=== PATIENT | female | born 2000 | race Caucasian/White ===

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

== ENCOUNTER 2021-08-03 13:08 | Emergency (ER) | payer OTHER, SELFPAY ==
[2021-08-03 13:16] VITALS: BP 115/72; PULSE 73; RESP 16; TEMP 36.5; O2SAT 100
--- NOTE | 2021-08-03 14:38 | ED.SKABFB ---
HPI - Skin/Abscess/Foreign Bdy General Chief complaint: Skin/Abscess/Foreign Body Stated complaint: Rash Time Seen by Provider: 08/03/21 14:32 Source: patient and RN notes reviewed Mode of arrival: ambulatory Limitations: no limitations History of Present Illness HPI narrative: Patient presents today complaining of left arm rash x11 days. Reports the rash itches and denies pain. She has been applying the fungal cream, aloe, peroxide and rubbing alcohol without much relief. She denies any new plants or animal contacts, new products in her home. No one else in her home has a similar rash. MD complaint: rash Related Data Home Medications Medication Instructions Recorded Confirmed No Home Medications 08/03/21 08/03/21 Allergies Allergy/AdvReac Type Severity Reaction Status Date / Time No Known Allergies Allergy Verified 08/03/21 13:10 Review of Systems Review of Systems: CONSTITUTIONAL: Denies body aches, fever, chills, or sweats. EYES: Denies visual changes, redness, or discharge. ENT: Denies rhinorrhea, congestion, sore throat, or otalgia. CARDIOVASCULAR: Denies chest pain, palpitations, or edema. RESPIRATORY: Denies cough or dyspnea. GASTROINTESTINAL: Denies abdominal pain, nausea, vomiting, or diarrhea. GENITOURINARY: Denies dysuria or hematuria. SKIN: Denies wounds.+ Pruritic rash MUSCULOSKELETAL: Denies back pain, joint pain, or myalgia. NEUROLOGIC: Denies headache, numbness, tingling, or weakness. PSYCH: Denies depression or anxiety. PMFSH Social History Social History Gender identity (if verbalized by the patient): Female Comments At time of signature, I have reviewed and agree with nursing past medical, surgical, social and family history unless otherwise noted. Please see nursing chart for further information. There is no relevant family history pertinent to the presenting complaint Exam Narrative: GENERAL: Well-appearing, well-nourished, and in no acute distress. HEAD: Normocephalic, atraumatic. EYES: EOMI. No redness or drainage. Conjunctivae normal. ENT: Mucous membranes pink and moist. NECK: Normal AROM. CHEST: No respiratory distress. EXTREMITIES: Left forearm: 3 erythematous clusters of tiny pustules measuring approximately 1.5 cm round, and 1 erythematous cluster of tiny pustules measuring 3.5 cm round. No induration or fluctuance noted. These areas are dry and the pustules are intact. SKIN: Warm, dry, Capillary refill normal. Normal skin turgor. NEURO: No focal deficits. Alert and oriented x3. Gait steady. PSYCH: Normal affect. No signs of depression or anxiety. Course Vital Signs Vital signs: Vital Signs Temperature 97.7 F 08/03/21 13:16 Pulse Rate 73 08/03/21 13:16 Respiratory Rate 16 08/03/21 13:16 Blood Pressure 115/72 08/03/21 13:16 Pulse Oximetry 100 08/03/21 13:16 Temperature 97.7 F 08/03/21 13:16 Pulse Rate 73 08/03/21 13:16 Respiratory Rate 16 08/03/21 13:16 Blood Pressure 115/72 08/03/21 13:16 Pulse Oximetry 100 08/03/21 13:16 Reviewed MDM - Skin/Abscess/Foreign Bdy Differential Diagnosis Differential diagnosis: Likely abscess of skin or subcutaneous tissue, herpes zoster, cellulitis, insect bites, impetigo, contact dermatitis and other (Staph infection) Critical Care Time Critical Care Time Critical Care Time: No Discharge Plan Discharge Clinical Impression: Impetigo Patient Disposition: Home, Self-Care Condition: Stable Instructions: Antibiotic Form, Impetigo (DC) Additional Instructions: Please take the Keflex and use the mupirocin ointment as directed. Follow-up with your doctor in 3 to 4 days if symptoms are not improving. Patient Language: [place] Prescriptions: New cephalexin 500 mg capsule 500 mg PO Q6H 7 Days Qty: 28 RF: 0 mupirocin 2 % ointment 1 applic topical BID Qty: 22 RF: 0 No Action No Home Medications
== END 2021-08-03 14:42 | disposition home or self-care (01) ==
PROVIDERS: Emergency Provider Nurse Practitioner
DX: L01.00 Impetigo, unspecified (principal)
CPT/HCPCS: 99213; G0463